=== PATIENT | female | born 2000 ===

== ENCOUNTER 2022-09-30 11:43 | Emergency (ER) | payer BC ==
[~2022-09-30] VITALS: Ht 162.6 cm; Wt 68.2 kg
[2022-09-30] MEDS ORDERED: LEXAPRO20 MG PO (12:10)
[2022-09-30] MEDS ORDERED: WELLBUTRIN SR150 M1 PO (12:10)
[2022-09-30 12:46] VITALS: BP 135/80; PULSE 88; TEMP 98.7
== END 2022-09-30 12:51 | disposition home or self-care (01) ==
LOC: COL.ER 11:43
DX: S60.011A Contusion of right thumb without damage to nail, initial encounter (principal); W23.0XXA Caught, crushed, jammed, or pinched between moving objects, initial encounter; Y92.810 Car as the place of occurrence of the external cause